=== PATIENT | female | born 2000 | race African-American/Black ===

== ENCOUNTER 2018-02-19 13:38 | Emergency (ER) | payer OTHER ==
[2018-02-19] MEDS ORDERED: NS 1,000 ML IV ONE (14:37)
--- NOTE | 2018-02-19 14:40 | EDPHY ---
H & P Stated Complaint: near syncope s/p blood donation Time Seen by Provider: 02/19/18 14:31 HPI/ROS: CHIEF COMPLAINT: Near syncope HISTORY OF PRESENT ILLNESS: 17-year-old female otherwise healthy self presents stating that earlier today she gave blood at the blood drive and felt fine afterward. 2 hr later however she was standing in line to get food, started to feel tunnel vision, hot and sweaty, had to sit down. She did not have a full syncopal episode. Did not hit her head. Did not seize. No incontinence. She has since eaten PRIMARY CARE PROVIDER: REVIEW OF SYSTEMS: A ten point review of systems was performed and is negative with the exception of the items mentioned in the HPI PAST MEDICAL & SURGICAL HISTORY: No pertinent medical or surgical history SOCIAL HISTORY: Nonsmoker. PHYSICAL EXAM (Prior to examination, patient consented to physical exam, hands were washed and my usual and customary physical exam procedures followed) 1) GENERAL: Well-developed, well-nourished, alert and oriented. Appears to be in no acute distress. 2) HEAD: Normocephalic, atraumatic 3) HEENT: Pupils equal, round, reactive to light bilaterally. Sclera anicteric. Nasopharynx, oropharynx, clear, no lesions. No laceration. 4) NECK: Full range of motion, no meningeal signs. 5) LUNGS: Clear auscultation bilaterally, no wheezes, no rhonchi, no retractions. 6) HEART: Regular rate and rhythm, no murmur, no heave, no gallop. 7) ABDOMEN: No guarding, no rebound, no focal tenderness, negative McBurney's, negative Parekh's, negative Rovsing's, negative peritoneal sign, 8) MUSCULOSKELETAL: Moving all extremities, no focal areas of tenderness, no obvious trauma. No peripheral edema or discoloration. 9) BACK: No CVA tenderness, no midline vertebral tenderness, no fluctuance, no step-off, no obvious trauma, no visual or palpable abnormality. 10) SKIN: No rash, no petechiae. 11) NEURO: Awake, alert, and oriented to person, place and time. Answers questions appropriately. There were no obvious focal neurologic abnormalities. No cerebellar dysfunction. Cranial nerves 2 through to 12 intact. Normal steady gait. Upper and lower extremities bilaterally with strength 5 / 5, reflexes 2+. DIFFERENTIAL DIAGNOSIS: In no particular include but limited to transient hypoglycemia, vasovagal syncope, orthostatic hypotension, cardiac dysrhythmia, ectopic - Personal History LMP (Females 10-55): 15-21 Days Ago Current Tetanus/Diphtheria Vaccine: Yes Current Tetanus Diphtheria and Acellular Pertussis (TDAP): Yes - Medical/Surgical History Hx Asthma: No Hx Chronic Respiratory Disease: No Hx Diabetes: No Hx Cardiac Disease: No Hx Renal Disease: No Hx Cirrhosis: No Hx Alcoholism: No Hx HIV/AIDS: No Hx Splenectomy or Spleen Trauma: No Other PMH: denies - Social History Smoking Status: Never smoked Constitutional: Initial Vital Signs Temperature (C) 37.3 C 02/19/18 13:58 Heart Rate 70 02/19/18 13:58 Respiratory Rate 16 02/19/18 13:58 Blood Pressure 108/69 02/19/18 13:58 O2 Sat (%) 97 02/19/18 13:58 O2 Delivery Mode Room Air Allergies/Adverse Reactions: No Known Allergies Allergy (Unverified 02/19/18 13:58) Home Medications: Medication Instructions Recorded NK [No Known Home Meds] 02/19/18 Medical Decision Making ED Course/Re-evaluation: Patient was re-evaluated with serial examinations. We discussed that her symptoms may have been secondary to vasovagal syncope, orthostatic hypotension, in the presence of recent blood donation. At this time I do not think that further diagnostic studies are indicated. Recommend she eat food, rest, drink liquids. She feels comfortable with this plan. Care of patient under supervision of secondary supervising physician Dr Edie Lovelace - Data Points Laboratory Results: Laboratory Results 02/19/18 15:57 02/19/18 15:57 Medications Given: Discontinued Medications Sodium Chloride (Ns) 1,000 mls @ 0 mls/hr IV ONCE ONE PRN Reason: Wide Open Stop: 02/19/18 14:38 Last Admin: 02/19/18 15:01 Dose: 1,000 mls Departure - Departure Disposition: Home, Routine, Self-Care Clinical Impression: Near syncope Condition: Good Instructions: Near Syncope (ED) Additional Instructions: Make sure you eat a full meal, get some rest and drink plenty of fluids. Avoid alcohol. Referrals: SAIDA RICHARDS [Other] - 1-2 days without fail
--- NOTE | 2018-02-19 14:46 | CPEKG ---
Heart Rate: 67 RR Interval: 896 P-R Interval: 144 QRSD Interval: 72 QT Interval: 404 QTC Interval: 427 P Simms: 49 QRS Simms: 41 T Wave Simms: 27 EKG Severity - NORMAL ECG - EKG Impression: SINUS RHYTHM Electronically Signed By: Ortega Veronica 19-Feb-2018 21:02:57
[2018-02-19 16:08] LABS: PLATELET COUNT 263 10^3/uL (150-400)
[2018-02-19 16:33] VITALS: BP 116/71
== END 2018-02-19 16:33 | disposition home or self-care (01) ==
DX: R55 Syncope and collapse (principal)